=== PATIENT | female | born 1960 | race Caucasian/White ===

== ENCOUNTER 2017-02-22 15:42 | Emergency (ER) | payer OTHER ==
[~2017-02-22 15:42] MED LIST: ASPIR 8181 MG PO; EFFEXOR-XR150 MG PO; KLONOPIN1 MG PO; LEVOTHYROXINE0.05 M2 PO; TRAMADOL HCL50 MG PO; TRAZODONE HYDR100 MG PO; VITAMIN D32000 I2 PO
[2017-02-22 17:27] VITALS: BP 123/92
== END 2017-02-22 16:08 | disposition home or self-care (01) ==
LOC: ED 15:42
DX: G44.209 Tension-type headache, unspecified, not intractable (principal); M79.7 Fibromyalgia; R03.0 Elevated blood-pressure reading, without diagnosis of hypertension; F41.9 Anxiety disorder, unspecified; F32.9 Major depressive disorder, single episode, unspecified; G47.00 Insomnia, unspecified
CPT/HCPCS: J1885

== ENCOUNTER 2017-04-14 20:08 | Emergency (ER) | payer OTHER ==
[2017-04-14 21:21] LABS: BASOPHIL % 1.4 % (0-2); PLATELET COUNT 292 x10^3mcL (130-400); RED CELL DISTRIBUTION WIDTH 12.7 % (11.5-14.5)
[2017-04-14 21:27] LABS: CALCIUM 9.2 mg/dL (8.5-10.1); CARBON DIOXIDE 29.6 mmol/L (21-32); CHLORIDE SERUM 104 mmol/L (98-107); CREATININE SERUM 0.9 mg/dL (0.6-1.0); GFR1 > 60 mL/min; GLUCOSE SERUM 153 mg/dL (74-106); POTASSIUM SERUM 3.9 mmol/L (3.5-5.1); SODIUM SERUM 142 mmol/L (136-145)
[2017-04-14 21:32] LABS: ALBUMIN 4.1 g/dL (3.4-5.0); ALKALINE PHOSPHATASE 116 U/L (46-116); ALT/SGPT 40 U/L (14-59); AST/SGOT 26 U/L (15-37); BILIRUBIN TOTAL 0.2 mg/dL (0.20-1.00); TOTAL PROTEIN, SERUM 7.3 g/dL (6.4-8.2)
[2017-04-14 22:10] VITALS: BP 128/88
== END 2017-04-14 22:10 | disposition home or self-care (01) ==
LOC: ED 20:08
PROVIDERS: Emergency Medicine
DX: R14.0 Abdominal distension (gaseous) (principal); K64.9 Unspecified hemorrhoids; M79.7 Fibromyalgia
CPT/HCPCS: J1885

== ENCOUNTER 2017-06-13 23:01 | Emergency (ER) | payer OTHER ==
[2017-06-14 00:40] VITALS: BP 133/57
== END 2017-06-14 00:40 | disposition home or self-care (01) ==
LOC: ED 23:01
DX: B34.9 Viral infection, unspecified (principal); H92.03 Otalgia, bilateral

== ENCOUNTER 2017-07-14 15:22 | Emergency (ER) | payer OTHER ==
[2017-07-14 16:39] VITALS: BP 140/92
== END 2017-07-14 16:39 | disposition home or self-care (01) ==
LOC: ED 15:22
DX: S90.32XA Contusion of left foot, initial encounter (principal); M79.7 Fibromyalgia; E03.9 Hypothyroidism, unspecified; G89.29 Other chronic pain; M54.2 Cervicalgia; M54.9 Dorsalgia, unspecified; W22.8XXA Striking against or struck by other objects, initial encounter; Y93.89 Activity, other specified; Y99.8 Other external cause status; Y92.89 Other specified places as the place of occurrence of the external cause
CPT/HCPCS: Q0092

== ENCOUNTER 2017-08-02 08:01 | Emergency (ER) | payer OTHER ==
[2017-08-02 09:54] VITALS: BP 128/86
== END 2017-08-02 09:52 | disposition home or self-care (01) ==
LOC: ED 08:01
DX: S92.515A Nondisplaced fracture of proximal phalanx of left lesser toe(s), initial encounter for closed fracture (principal); M79.672 Pain in left foot; M79.7 Fibromyalgia; G47.00 Insomnia, unspecified; W22.8XXA Striking against or struck by other objects, initial encounter; Y93.89 Activity, other specified; Y99.8 Other external cause status; Y92.89 Other specified places as the place of occurrence of the external cause
CPT/HCPCS: Q0092

== ENCOUNTER 2017-09-11 16:22 | Emergency (ER) | payer OTHER ==
[~2017-09-11] VITALS: Ht 157.5 cm; Wt 71.2 kg
[2017-09-11 20:45] VITALS: BP 121/84
== END 2017-09-11 20:45 | disposition home or self-care (01) ==
LOC: ED 16:22
DX: M54.16 Radiculopathy, lumbar region (principal); R03.0 Elevated blood-pressure reading, without diagnosis of hypertension; Z90.49 Acquired absence of other specified parts of digestive tract; Z90.89 Acquired absence of other organs
CPT/HCPCS: J1885

== ENCOUNTER 2018-03-03 20:45 | Emergency (ER) | payer OTHER ==
[~2018-03-03] VITALS: Ht 157.5 cm; Wt 70.3 kg
[2018-03-03 20:55] VITALS: Ht 157.5 cm; Wt 70.3 kg
[2018-03-03 22:15] VITALS: BP 124/86
== END 2018-03-03 22:15 | disposition home or self-care (01) ==
LOC: ED 20:45
DX: M54.42 Lumbago with sciatica, left side (principal); M54.41 Lumbago with sciatica, right side; G89.29 Other chronic pain; M79.7 Fibromyalgia; I10 Essential (primary) hypertension; Z90.49 Acquired absence of other specified parts of digestive tract

== ENCOUNTER 2018-04-22 11:39 | Inpatient (IN) | payer OTHER ==
[~2018-04-22] VITALS: Ht 157.5 cm; Wt 66.5 kg
[2018-04-22 11:46] VITALS: Ht 157.5 cm; Wt 66.5 kg
[2018-04-22 12:33] LABS: BASOPHIL % 0.9 % (0-2); PLATELET COUNT 283 x10^3mcL (130-400); RED CELL DISTRIBUTION WIDTH 12.9 % (11.5-14.5)
[2018-04-22 12:43] LABS: CALCIUM 9.3 mg/dL (8.5-10.1); CARBON DIOXIDE 21.4 mmol/L (21-32); CHLORIDE SERUM 102 mmol/L (98-107); CREATININE SERUM 0.8 mg/dL (0.6-1.0); GFR1 > 60 mL/min; GLUCOSE SERUM 321 mg/dL (74-106); POTASSIUM SERUM 3.6 mmol/L (3.5-5.1); SODIUM SERUM 140 mmol/L (136-145)
[2018-04-22 12:52] LABS: ALKALINE PHOSPHATASE 169 U/L (46-116); ALT/SGPT 70 U/L (14-59); AST/SGOT 58 U/L (15-37); HDL CHOLESTEROL 44 mg/dL (40-60); PHOSPHOROUS 3.1 mg/dL (2.5-4.9); URIC ACID 5.1 mg/dL (2.6-6.0)
[2018-04-22 12:54] LABS: CHOLESTEROL 339 mg/dL (<200)
[2018-04-22 15:06] VITALS: BP 136/78
[2018-04-22 15:47] LABS: MAGNESIUM 1.8 mg/dL (1.8-2.4)
[2018-04-22 15:59] LABS: FREE T4 1.08 ng/dL (0.76-1.46); FREE THYROXINE INDEX 2.9 ug/dL (1.4-4.5); T4(THYROXINE) 9.2 ug/dL (4.7-13.3)
[2018-04-22 16:07] LABS: T3 TOTAL 1.05 ng/mL
[2018-04-22] MEDS ORDERED: GABAPENTIN300 M4 PO (16:21)
[2018-04-22 17:13] VITALS: BP 107/71
[2018-04-22 17:38] LABS: UA SPECIFIC GRAVITY >=1.030 (1.005-1.035); microscopic required? YES; urine erythrocyte NEGATIVE (NEGATIVE)
[2018-04-22 17:49] LABS: AMPHETAMINE QUAL UR NONE DETECTED (NEG <=1000)
[2018-04-23 04:57] VITALS: BP 118/64
[2018-04-23 06:41] LABS: BASOPHIL % 0.6 % (0-2); PLATELET COUNT 249 x10^3mcL (130-400); RED CELL DISTRIBUTION WIDTH 12.5 % (11.5-14.5)
[2018-04-23 07:01] LABS: CALCIUM 8.3 mg/dL (8.5-10.1); CARBON DIOXIDE 25.1 mmol/L (21-32); CHLORIDE SERUM 109 mmol/L (98-107); CREATININE SERUM 0.7 mg/dL (0.6-1.0); GFR1 > 60 mL/min; GLUCOSE SERUM 197 mg/dL (74-106); POTASSIUM SERUM 3.7 mmol/L (3.5-5.1); SODIUM SERUM 146 mmol/L (136-145)
[2018-04-23 08:41] VITALS: BP 117/68
[2018-04-23 14:01] VITALS: BP 134/73
[2018-04-23 17:45] VITALS: BP 133/74
[2018-04-23 20:52] VITALS: BP 128/81
[2018-04-24 05:31] VITALS: BP 114/71
[2018-04-24 06:06] LABS: CALCIUM 8.2 mg/dL (8.5-10.1); CARBON DIOXIDE 24.4 mmol/L (21-32); CHLORIDE SERUM 108 mmol/L (98-107); CREATININE SERUM 0.8 mg/dL (0.6-1.0); GFR1 > 60 mL/min; GLUCOSE SERUM 184 mg/dL (74-106); SODIUM SERUM 144 mmol/L (136-145)
[2018-04-24 09:03] VITALS: BP 119/74
[2018-04-24] MEDS ORDERED: METFORMIN HCL1000 MG PO (09:50)
[2018-04-24 13:07] VITALS: BP 120/70
[2018-04-24] MEDS ORDERED: LIPI20 PO (13:32)
[2018-04-24 14:38] VITALS: BP 120/70
== END 2018-04-24 15:00 | disposition home or self-care (01) | DRG 203 ==
LOC: ED 11:39 → DU 14:18
PROVIDERS: Emergency Medicine; Family Medicine
DX: M94.0 Chondrocostal junction syndrome [Tietze] (principal); N17.0 Acute kidney failure with tubular necrosis; K21.9 Gastro-esophageal reflux disease without esophagitis; M79.7 Fibromyalgia; E11.65 Type 2 diabetes mellitus with hyperglycemia; I10 Essential (primary) hypertension; G89.29 Other chronic pain; M54.9 Dorsalgia, unspecified; F32.9 Major depressive disorder, single episode, unspecified; G90.8 Other disorders of autonomic nervous system; I16.0 Hypertensive urgency; E03.9 Hypothyroidism, unspecified; E78.5 Hyperlipidemia, unspecified; F41.9 Anxiety disorder, unspecified; Z90.49 Acquired absence of other specified parts of digestive tract; E87.0 Hyperosmolality and hypernatremia
CPT/HCPCS: 82962; 83880; 84439; G0480; J0780; J1885; J2405; J7030; Q0092

== ENCOUNTER 2018-05-03 19:06 | Emergency (ER) | payer OTHER ==
[~2018-05-03] VITALS: Ht 157.5 cm; Wt 67.6 kg
[~2018-05-03 19:06] MED LIST changes: +GABAPENTIN300 M4 PO; +LIPI20 PO; +METFORMIN HCL1000 MG PO
[2018-05-03 19:14] VITALS: Ht 157.5 cm; Wt 67.6 kg
[2018-05-03 21:32] VITALS: BP 114/80
== END 2018-05-03 21:32 | disposition home or self-care (01) ==
LOC: ED 19:06
DX: M25.512 Pain in left shoulder (principal); I10 Essential (primary) hypertension; M79.7 Fibromyalgia; Z90.49 Acquired absence of other specified parts of digestive tract
CPT/HCPCS: A4570; J1885

== ENCOUNTER 2018-08-12 23:30 | Emergency (ER) | payer OTHER ==
[2018-08-12 23:42] VITALS: BP 125/79; Ht 162.6 cm
== END 2018-08-13 00:34 | disposition home or self-care (01) ==
LOC: ED 23:30
DX: S40.862A Insect bite (nonvenomous) of left upper arm, initial encounter (principal); E11.9 Type 2 diabetes mellitus without complications; I10 Essential (primary) hypertension; F41.9 Anxiety disorder, unspecified; G89.29 Other chronic pain; F32.9 Major depressive disorder, single episode, unspecified; M79.7 Fibromyalgia; Z90.89 Acquired absence of other organs; Z90.49 Acquired absence of other specified parts of digestive tract; W57.XXXA Bitten or stung by nonvenomous insect and other nonvenomous arthropods, initial encounter; Y93.89 Activity, other specified; Y92.89 Other specified places as the place of occurrence of the external cause; Y99.8 Other external cause status

== ENCOUNTER 2018-09-17 12:50 | Emergency (ER) | payer OTHER ==
[~2018-09-17] VITALS: Ht 157.5 cm; Wt 65.8 kg
[2018-09-17 13:07] VITALS: Ht 157.5 cm; Wt 65.8 kg
[2018-09-17 14:22] LABS: BASOPHIL % 0.6 % (0-2); PLATELET COUNT 328 x10^3mcL (130-400); RED CELL DISTRIBUTION WIDTH 12.8 % (11.5-14.5)
[2018-09-17 14:29] LABS: CALCIUM 9.3 mg/dL (8.5-10.1); CARBON DIOXIDE 25.3 mmol/L (21-32); CHLORIDE SERUM 104 mmol/L (98-107); CREATININE SERUM 0.8 mg/dL (0.6-1.0); GFR1 > 60 mL/min; GLUCOSE SERUM 131 mg/dL (74-106); POTASSIUM SERUM 4.2 mmol/L (3.5-5.1); SODIUM SERUM 139 mmol/L (136-145)
[2018-09-17 14:34] LABS: ALKALINE PHOSPHATASE 107 U/L (46-116); ALT/SGPT 43 U/L (14-59); AST/SGOT 30 U/L (15-37); BILIRUBIN TOTAL 0.3 mg/dL (0.20-1.00); TOTAL PROTEIN, SERUM 7.6 g/dL (6.4-8.2)
[2018-09-17 15:45] VITALS: BP 146/76
== END 2018-09-17 15:45 | disposition home or self-care (01) ==
LOC: ED 12:50
PROVIDERS: Specialist
DX: R53.1 Weakness (principal); R11.0 Nausea; R05 Cough; I10 Essential (primary) hypertension; E11.9 Type 2 diabetes mellitus without complications; F41.9 Anxiety disorder, unspecified; M79.7 Fibromyalgia; G89.29 Other chronic pain; Z90.89 Acquired absence of other organs; Z90.49 Acquired absence of other specified parts of digestive tract
CPT/HCPCS: 82962; J1885; J2405; Q0092

== ENCOUNTER 2018-12-10 17:30 | Emergency (ER) | payer OTHER ==
[~2018-12-10] VITALS: Ht 157.5 cm; Wt 65.1 kg
[2018-12-10 17:37] VITALS: Ht 157.5 cm; Wt 65.1 kg
[2018-12-10 20:26] LABS: microscopic required? NO
[2018-12-10 20:38] LABS: BASOPHIL % 0.4 % (0-2); PLATELET COUNT 359 x10^3mcL (130-400); RED CELL DISTRIBUTION WIDTH 12.9 % (11.5-14.5)
[2018-12-10 20:40] LABS: UA SPECIFIC GRAVITY >=1.030 (1.005-1.035); urine erythrocyte NEGATIVE (NEGATIVE)
[2018-12-10 20:48] LABS: CALCIUM 9.3 mg/dL (8.5-10.1); CARBON DIOXIDE 25.6 mmol/L (21-32); CREATININE SERUM 1.1 mg/dL (0.6-1.0); POTASSIUM SERUM 4.1 mmol/L (3.5-5.1)
[2018-12-10 20:53] LABS: ALBUMIN 4.7 g/dL (3.4-5.0); BILIRUBIN TOTAL 0.6 mg/dL (0.20-1.00)
[2018-12-10 20:57] LABS: TOTAL PROTEIN, SERUM 8.7 g/dL (6.4-8.2)
[2018-12-10 22:37] VITALS: BP 120/68
== END 2018-12-10 22:30 | disposition home or self-care (01) ==
LOC: ED 17:30
PROVIDERS: Emergency Medicine
DX: R53.1 Weakness (principal); R10.13 Epigastric pain; R10.32 Left lower quadrant pain; R10.31 Right lower quadrant pain; R19.7 Diarrhea, unspecified; R11.0 Nausea; I10 Essential (primary) hypertension; E11.9 Type 2 diabetes mellitus without complications; F41.9 Anxiety disorder, unspecified; F32.9 Major depressive disorder, single episode, unspecified; M79.7 Fibromyalgia; G89.29 Other chronic pain; M54.9 Dorsalgia, unspecified; Z90.89 Acquired absence of other organs; Z90.49 Acquired absence of other specified parts of digestive tract; Z98.890 Other specified postprocedural states
CPT/HCPCS: J1885; J2405; J7030

== ENCOUNTER 2019-02-25 14:50 | Emergency (ER) | payer OTHER ==
[~2019-02-25] VITALS: Ht 157.5 cm; Wt 67.6 kg
[2019-02-25 15:01] VITALS: Ht 157.5 cm; Wt 67.6 kg
[2019-02-25 19:16] LABS: BASOPHIL % 0.5 % (0-2); PLATELET COUNT 292 x10^3mcL (130-400); RED CELL DISTRIBUTION WIDTH 13.3 % (11.5-14.5)
[2019-02-25 19:20] LABS: CARBON DIOXIDE 29.2 mmol/L (21-32); CHLORIDE SERUM 100 mmol/L (98-107); CREATININE SERUM 0.9 mg/dL (0.6-1.0); GFR1 > 60 mL/min; GLUCOSE SERUM 138 mg/dL (74-106); POTASSIUM SERUM 3.7 mmol/L (3.5-5.1); SODIUM SERUM 138 mmol/L (136-145)
[2019-02-25 19:24] LABS: ALBUMIN 4.2 g/dL (3.4-5.0); ALKALINE PHOSPHATASE 110 U/L (46-116); ALT/SGPT 55 U/L (14-59); AST/SGOT 32 U/L (15-37); LIPASE 295 IU/L (73-393); TOTAL PROTEIN, SERUM 7.6 g/dL (6.4-8.2)
[2019-02-25 21:15] VITALS: BP 131/75
== END 2019-02-25 21:15 | disposition home or self-care (01) ==
LOC: ED 14:50
PROVIDERS: Emergency Medicine
DX: H66.91 Otitis media, unspecified, right ear (principal); B34.9 Viral infection, unspecified; I10 Essential (primary) hypertension; E11.9 Type 2 diabetes mellitus without complications; E78.00 Pure hypercholesterolemia, unspecified; F41.9 Anxiety disorder, unspecified; F29 Unspecified psychosis not due to a substance or known physiological condition; F32.9 Major depressive disorder, single episode, unspecified; Z90.49 Acquired absence of other specified parts of digestive tract; Z90.89 Acquired absence of other organs
CPT/HCPCS: J2270; J2405; J7030

== ENCOUNTER 2019-03-27 17:50 | Emergency (ER) | payer OTHER ==
[~2019-03-27] VITALS: Ht 157.5 cm; Wt 67.6 kg
[2019-03-27 18:02] VITALS: Ht 157.5 cm; Wt 67.6 kg
[2019-03-27 19:31] VITALS: BP 106/70
== END 2019-03-27 19:31 | disposition left against medical advice (07) ==
LOC: ED 17:50
DX: Z53.21 Procedure and treatment not carried out due to patient leaving prior to being seen by health care provider (principal)

== ENCOUNTER 2019-04-12 12:11 | Emergency (ER) | payer OTHER ==
[~2019-04-12] VITALS: Ht 157.5 cm; Wt 68.3 kg
[2019-04-12 12:26] VITALS: Ht 157.5 cm; Wt 68.3 kg
[2019-04-12 13:22] LABS: BASOPHIL % 0.7 % (0-2); PLATELET COUNT 297 x10^3mcL (130-400); RED CELL DISTRIBUTION WIDTH 13.3 % (11.5-14.5)
[2019-04-12 13:30] LABS: UA SPECIFIC GRAVITY 1.025 (1.005-1.035); microscopic required? YES; urine erythrocyte TRACE (NEGATIVE)
[2019-04-12 13:38] LABS: CALCIUM 9.7 mg/dL (8.5-10.1); CARBON DIOXIDE 25.7 mmol/L (21-32); CHLORIDE SERUM 106 mmol/L (98-107); CREATININE SERUM 0.8 mg/dL (0.6-1.0); GFR1 > 60 mL/min; GLUCOSE SERUM 150 mg/dL (74-106); POTASSIUM SERUM 5.2 mmol/L (3.5-5.1); SODIUM SERUM 140 mmol/L (136-145)
[2019-04-12 13:40] LABS: AMPHETAMINE QUAL UR NONE DETECTED (See below)
[2019-04-12 13:43] LABS: ALBUMIN 3.9 g/dL (3.4-5.0); ALKALINE PHOSPHATASE 95 U/L (46-116); ALT/SGPT 63 U/L (14-59); AST/SGOT 31 U/L (15-37); BILIRUBIN TOTAL 0.43 mg/dL (0.20-1.00); TOTAL PROTEIN, SERUM 7.1 g/dL (6.4-8.2)
[2019-04-12 15:39] LABS: CALCIUM 9.4 mg/dL (8.5-10.1); CARBON DIOXIDE 23.6 mmol/L (21-32); CHLORIDE SERUM 105 mmol/L (98-107); CREATININE SERUM 0.8 mg/dL (0.6-1.0); GFR1 > 60 mL/min; GLUCOSE SERUM 129 mg/dL (74-106); SODIUM SERUM 138 mmol/L (136-145)
[2019-04-12 16:55] VITALS: BP 133/88
== END 2019-04-12 16:55 | disposition home or self-care (01) ==
LOC: ED 12:11
PROVIDERS: Emergency Medicine
DX: R42 Dizziness and giddiness (principal); R51 Headache; I10 Essential (primary) hypertension; E11.9 Type 2 diabetes mellitus without complications; F41.9 Anxiety disorder, unspecified; F32.9 Major depressive disorder, single episode, unspecified; M79.7 Fibromyalgia; G89.29 Other chronic pain; E78.00 Pure hypercholesterolemia, unspecified; Z90.89 Acquired absence of other organs; Z90.49 Acquired absence of other specified parts of digestive tract; Z98.890 Other specified postprocedural states
CPT/HCPCS: 82962; J1885; J2405; J8597

== ENCOUNTER 2019-05-24 19:23 | Emergency (ER) | payer OTHER ==
[~2019-05-24] VITALS: Ht 157.5 cm; Wt 68.9 kg
[2019-05-24 19:28] VITALS: Ht 157.5 cm; Wt 68.9 kg
[2019-05-24 23:15] VITALS: BP 114/63
== END 2019-05-24 23:15 | disposition home or self-care (01) ==
LOC: ED 19:23
DX: S16.1XXA Strain of muscle, fascia and tendon at neck level, initial encounter (principal); G44.209 Tension-type headache, unspecified, not intractable; E11.9 Type 2 diabetes mellitus without complications; I10 Essential (primary) hypertension; X58.XXXA Exposure to other specified factors, initial encounter; Y93.89 Activity, other specified; Y92.89 Other specified places as the place of occurrence of the external cause; Y99.8 Other external cause status
CPT/HCPCS: J1885; J2765

== ENCOUNTER 2019-10-05 21:26 | Emergency (ER) | payer OTHER ==
[~2019-10-05] VITALS: Ht 157.5 cm; Wt 66.2 kg
[2019-10-05 21:33] VITALS: Ht 157.5 cm; Wt 66.2 kg
[2019-10-06 00:01] VITALS: BP 116/71
== END 2019-10-06 00:25 | disposition home or self-care (01) ==
LOC: ED 21:26
DX: E11.43 Type 2 diabetes mellitus with diabetic autonomic (poly)neuropathy (principal); K31.84 Gastroparesis; G44.209 Tension-type headache, unspecified, not intractable; A08.4 Viral intestinal infection, unspecified; Z90.89 Acquired absence of other organs; Z90.49 Acquired absence of other specified parts of digestive tract
CPT/HCPCS: 87804; J1885; J2765

== ENCOUNTER 2019-10-13 18:51 | Emergency (ER) | payer OTHER ==
[2019-10-13 19:05] VITALS: BP 118/78
== END 2019-10-13 20:11 | disposition home or self-care (01) ==
LOC: ED 18:51
DX: M26.601 Right temporomandibular joint disorder, unspecified (principal); I10 Essential (primary) hypertension; E11.9 Type 2 diabetes mellitus without complications; F32.9 Major depressive disorder, single episode, unspecified; F41.9 Anxiety disorder, unspecified; Z90.89 Acquired absence of other organs; Z90.49 Acquired absence of other specified parts of digestive tract; E78.00 Pure hypercholesterolemia, unspecified

== ENCOUNTER 2019-12-07 16:26 | Inpatient (IN) | payer OTHER ==
[~2019-12-07] VITALS: Ht 157.5 cm; Wt 63.5 kg
[2019-12-07 16:37] VITALS: Ht 157.5 cm; Wt 63.5 kg
[2019-12-07 18:33] LABS: BASOPHIL % 0.4 % (0-2); PLATELET COUNT 302 x10^3mcL (130-400); RED CELL DISTRIBUTION WIDTH 12.9 % (11.5-14.5)
[2019-12-07 18:51] LABS: microscopic required? NO
[2019-12-07 18:57] LABS: UA SPECIFIC GRAVITY <=1.005 (1.005-1.035); urine erythrocyte NEGATIVE (NEGATIVE)
[2019-12-07 19:22] LABS: CHLORIDE SERUM 98 mmol/L (98-107); POTASSIUM SERUM 4.1 mmol/L (3.5-5.1); SODIUM SERUM 135 mmol/L (136-145)
[2019-12-07 19:23] LABS: ALBUMIN 3.7 g/dL (3.4-5.0); ALKALINE PHOSPHATASE 140 U/L (46-116); ALT/SGPT 42 U/L (14-59); AST/SGOT 25 U/L (15-37); BILIRUBIN TOTAL 0.52 mg/dL (0.20-1.00); CALCIUM 9.4 mg/dL (8.5-10.1); CARBON DIOXIDE 29.2 mmol/L (21-32); GFR1 > 60 mL/min; GLUCOSE SERUM 426 mg/dL (74-106); TOTAL PROTEIN, SERUM 7.2 g/dL (6.4-8.2)
[2019-12-07] MEDS ORDERED: ZESTRIL10 MG PO (20:12)
[2019-12-07 20:59] LABS: AMPHETAMINE QUAL UR NEGATIVE (See below)
[2019-12-07 21:00] LABS: CHOLESTEROL 363 mg/dL (<200); CHOLESTEROL/HDL RATIO 8.9; HDL CHOLESTEROL 41 mg/dL (40-60); TRIGLYCERIDES 693 mg/dL (<150)
[2019-12-07 22:40] VITALS: BP 109/69
[2019-12-08 05:08] LABS: BASOPHIL % 0.7 % (0-2); PLATELET COUNT 199 x10^3mcL (130-400); RED CELL DISTRIBUTION WIDTH 12.9 % (11.5-14.5)
[2019-12-08 05:31] LABS: CALCIUM 7.8 mg/dL (8.5-10.1); CARBON DIOXIDE 24.8 mmol/L (21-32); CHLORIDE SERUM 110 mmol/L (98-107); CREATININE SERUM 0.8 mg/dL (0.6-1.0); GFR1 > 60 mL/min; GLUCOSE SERUM 165 mg/dL (74-106); MAGNESIUM 1.9 mg/dL (1.8-2.4); PHOSPHOROUS 3.2 mg/dL (2.5-4.9); POTASSIUM SERUM 3.9 mmol/L (3.5-5.1); SODIUM SERUM 143 mmol/L (136-145)
[2019-12-08 05:58] VITALS: BP 100/61
[2019-12-08 08:54] VITALS: BP 96/57
[2019-12-08 12:50] VITALS: BP 111/70
[2019-12-08 17:51] VITALS: BP 116/73
[2019-12-08 21:00] VITALS: BP 119/76
[2019-12-09 05:49] VITALS: BP 124/69
[2019-12-09 06:20] VITALS: BP 124/69
[2019-12-09 06:39] LABS: BASOPHIL % 0.6 % (0-2); PLATELET COUNT 207 x10^3mcL (130-400); RED CELL DISTRIBUTION WIDTH 12.8 % (11.5-14.5)
[2019-12-09 07:27] LABS: CARBON DIOXIDE 25.4 mmol/L (21-32); CHLORIDE SERUM 107 mmol/L (98-107); CREATININE SERUM 0.7 mg/dL (0.6-1.0); GFR1 > 60 mL/min; GLUCOSE SERUM 155 mg/dL (74-106); PHOSPHOROUS 3.1 mg/dL (2.5-4.9); POTASSIUM SERUM 4.1 mmol/L (3.5-5.1); SODIUM SERUM 141 mmol/L (136-145)
[2019-12-09 08:45] VITALS: BP 105/52
[2019-12-09 09:07] LABS: MAGNESIUM 1.7 mg/dL (1.8-2.4)
[2019-12-09] MEDS ORDERED: GLU5 PO (12:33)
[2019-12-09] MEDS ORDERED: METFORMIN HCL1000 MG PO (12:33)
[2019-12-09 12:59] VITALS: BP 105/63
[2019-12-09 13:14] VITALS: BP 105/63
== END 2019-12-09 14:08 | disposition home or self-care (01) | DRG 205 ==
LOC: ED 16:26 → DU 20:11
PROVIDERS: Emergency Medicine; ADMIT Internal Medicine
DX: M94.0 Chondrocostal junction syndrome [Tietze] (principal); E11.00 Type 2 diabetes mellitus with hyperosmolarity without nonketotic hyperglycemic-hyperosmolar coma (NKHHC); E87.1 Hypo-osmolality and hyponatremia; I10 Essential (primary) hypertension; M79.7 Fibromyalgia; F32.9 Major depressive disorder, single episode, unspecified; E78.5 Hyperlipidemia, unspecified; E03.9 Hypothyroidism, unspecified; G47.00 Insomnia, unspecified; Z68.26 Body mass index [BMI] 26.0-26.9, adult; Z79.84 Long term (current) use of oral hypoglycemic drugs; Z91.14 Patient's other noncompliance with medication regimen
CPT/HCPCS: 82962; 83880; 87804; G0378; J1885; J7030

== ENCOUNTER 2019-12-22 15:41 | Emergency (ER) | payer OTHER ==
[~2019-12-22] VITALS: Ht 167.6 cm; Wt 65.8 kg
[~2019-12-22 15:41] MED LIST changes: +GLU5 PO; +ZESTRIL10 MG PO
[2019-12-22 15:45] VITALS: Ht 167.6 cm; Wt 65.8 kg
[2019-12-22 17:01] LABS: CALCIUM 9.1 mg/dL (8.5-10.1); CARBON DIOXIDE 29.6 mmol/L (21-32); CREATININE SERUM 1.5 mg/dL (0.6-1.0); POTASSIUM SERUM 4.6 mmol/L (3.5-5.1)
[2019-12-22 17:05] LABS: BILIRUBIN TOTAL 0.35 mg/dL (0.20-1.00); TOTAL PROTEIN, SERUM 7.6 g/dL (6.4-8.2)
[2019-12-22 17:17] LABS: BASOPHIL % 0.5 % (0-2); PLATELET COUNT 348 x10^3mcL (130-400)
[2019-12-22 20:33] VITALS: BP 133/86
== END 2019-12-22 20:33 | disposition home or self-care (01) ==
LOC: ED 15:41
PROVIDERS: Student in an Organized Health Care Education/Training Program
DX: J06.9 Acute upper respiratory infection, unspecified (principal); E11.65 Type 2 diabetes mellitus with hyperglycemia; I10 Essential (primary) hypertension; M79.7 Fibromyalgia; G89.29 Other chronic pain; E78.00 Pure hypercholesterolemia, unspecified; Z90.89 Acquired absence of other organs; Z90.49 Acquired absence of other specified parts of digestive tract
CPT/HCPCS: 36415; 82962; 87804

== ENCOUNTER 2020-01-06 14:13 | Emergency (ER) | payer OTHER ==
[~2020-01-06] VITALS: Ht 157.5 cm; Wt 65.3 kg
[2020-01-06 14:52] VITALS: BP 132/67; Ht 157.5 cm; Wt 65.3 kg
== END 2020-01-06 18:11 | disposition home or self-care (01) ==
LOC: ED 14:13
DX: S16.1XXA Strain of muscle, fascia and tendon at neck level, initial encounter (principal); S86.911A Strain of unspecified muscle(s) and tendon(s) at lower leg level, right leg, initial encounter; S30.0XXA Contusion of lower back and pelvis, initial encounter; I10 Essential (primary) hypertension; E11.9 Type 2 diabetes mellitus without complications; W01.0XXA Fall on same level from slipping, tripping and stumbling without subsequent striking against object, initial encounter; Y93.89 Activity, other specified; Y92.89 Other specified places as the place of occurrence of the external cause; Y99.8 Other external cause status
CPT/HCPCS: J1885

== ENCOUNTER 2020-01-07 09:52 | Emergency (ER) | payer OTHER ==
[~2020-01-07] VITALS: Ht 157.5 cm; Wt 65.8 kg
[2020-01-07 09:59] VITALS: Ht 157.5 cm; Wt 65.8 kg
[2020-01-07 11:47] VITALS: BP 132/71
== END 2020-01-07 11:47 | disposition home or self-care (01) ==
LOC: ED 09:52
DX: S43.401A Unspecified sprain of right shoulder joint, initial encounter (principal); S63.501A Unspecified sprain of right wrist, initial encounter; S16.1XXA Strain of muscle, fascia and tendon at neck level, initial encounter; S80.01XA Contusion of right knee, initial encounter; W19.XXXA Unspecified fall, initial encounter; Y93.89 Activity, other specified; Y92.89 Other specified places as the place of occurrence of the external cause; Y99.8 Other external cause status

== ENCOUNTER 2020-01-11 18:18 | Emergency (ER) | payer OTHER ==
[~2020-01-11] VITALS: Ht 157.5 cm; Wt 66.7 kg
[2020-01-11 18:24] VITALS: Ht 157.5 cm; Wt 66.7 kg
[2020-01-11 20:14] VITALS: BP 128/78
== END 2020-01-11 20:14 | disposition home or self-care (01) ==
LOC: ED 18:18
DX: G89.29 Other chronic pain (principal); M25.561 Pain in right knee; M25.562 Pain in left knee; M79.601 Pain in right arm; I10 Essential (primary) hypertension; E11.9 Type 2 diabetes mellitus without complications; M79.7 Fibromyalgia; Z90.49 Acquired absence of other specified parts of digestive tract; Z90.89 Acquired absence of other organs; W18.30XA Fall on same level, unspecified, initial encounter; Y93.89 Activity, other specified; Y92.89 Other specified places as the place of occurrence of the external cause; Y99.8 Other external cause status
CPT/HCPCS: J3010

== ENCOUNTER 2020-01-29 01:53 | Emergency (ER) | payer OTHER ==
[~2020-01-29] VITALS: Ht 157.5 cm; Wt 67.4 kg
[2020-01-29 02:07] VITALS: BP 142/82; Ht 157.5 cm; Wt 67.4 kg
== END 2020-01-29 02:54 | disposition home or self-care (01) ==
LOC: ED 01:53
DX: M54.5 Low back pain (principal); M62.838 Other muscle spasm; I10 Essential (primary) hypertension; E11.9 Type 2 diabetes mellitus without complications; E78.00 Pure hypercholesterolemia, unspecified; Z90.49 Acquired absence of other specified parts of digestive tract; Z90.89 Acquired absence of other organs
CPT/HCPCS: J1885

== ENCOUNTER 2020-06-20 07:00 | Emergency (ER) | payer OTHER ==
[~2020-06-20] VITALS: Ht 170.2 cm; Wt 63.5 kg
[2020-06-20 07:11] VITALS: Ht 170.2 cm; Wt 63.5 kg
[2020-06-20 09:16] LABS: BASOPHIL % 0.3 % (0-2); PLATELET COUNT 236 x10^3mcL (130-400); RED CELL DISTRIBUTION WIDTH 12.5 % (11.5-14.5)
[2020-06-20 09:17] LABS: ALKALINE PHOSPHATASE 130 U/L (46-116); BILIRUBIN TOTAL 0.4 mg/dL (0.20-1.00); CALCIUM 8.1 mg/dL (8.5-10.1); CARBON DIOXIDE 23.1 mmol/L (21-32); CHLORIDE SERUM 94 mmol/L (98-107); GFR1 > 60 mL/min; MAGNESIUM 1.6 mg/dL (1.8-2.4); POTASSIUM SERUM 3.7 mmol/L (3.5-5.1); SODIUM SERUM 129 mmol/L (136-145); TOTAL PROTEIN, SERUM 6.5 g/dL (6.4-8.2)
[2020-06-20 09:26] LABS: ALBUMIN 3.3 g/dL (3.4-5.0)
[2020-06-20 09:29] LABS: GLUCOSE SERUM 473 mg/dL (74-106)
[2020-06-20 12:28] VITALS: BP 112/61
[2020-06-20 14:22] LABS: ALT/SGPT 32 U/L (14-59); AST/SGOT 22 U/L (15-37)
== END 2020-06-20 12:28 | disposition home or self-care (01) ==
LOC: ED 07:00
PROVIDERS: Emergency Medicine
DX: E11.65 Type 2 diabetes mellitus with hyperglycemia (principal); I10 Essential (primary) hypertension; E78.00 Pure hypercholesterolemia, unspecified; G89.29 Other chronic pain; M54.9 Dorsalgia, unspecified; Z90.49 Acquired absence of other specified parts of digestive tract
CPT/HCPCS: 82962; J1815; J3475; J7030; Q0092

== ENCOUNTER 2020-08-28 17:46 | Emergency (ER) | payer OTHER ==
[~2020-08-28] VITALS: Ht 157.5 cm; Wt 64.0 kg
[2020-08-28 20:18] VITALS: BP 110/49
== END 2020-08-28 20:18 | disposition home or self-care (01) ==
LOC: ED 17:46
DX: M25.551 Pain in right hip (principal); M54.30 Sciatica, unspecified side; I10 Essential (primary) hypertension; E11.9 Type 2 diabetes mellitus without complications; E03.9 Hypothyroidism, unspecified; G89.29 Other chronic pain; M54.9 Dorsalgia, unspecified
CPT/HCPCS: J1885

== ENCOUNTER 2020-09-17 15:22 | Inpatient (IN) | payer OTHER, SELFPAY ==
[~2020-09-17] VITALS: Ht 157.5 cm; Wt 64.6 kg
[2020-09-17 15:24] VITALS: Ht 157.5 cm; Wt 64.6 kg
[2020-09-17 17:22] LABS: UA SPECIFIC GRAVITY >=1.030 (1.005-1.035); microscopic required? YES; urine erythrocyte NEGATIVE (NEGATIVE)
[2020-09-17 17:24] LABS: BASOPHIL % 0.3 % (0-2); PLATELET COUNT 267 x10^3mcL (130-400)
[2020-09-17 17:35] LABS: CALCIUM 9.1 mg/dL (8.5-10.1); CARBON DIOXIDE 27.1 mmol/L (21-32); CHLORIDE SERUM 98 mmol/L (98-107); GFR1 > 60 mL/min; GLUCOSE SERUM 201 mg/dL (74-106); SODIUM SERUM 137 mmol/L (136-145)
[2020-09-17 17:55] LABS: ALBUMIN 3.8 g/dL (3.4-5.0); ALKALINE PHOSPHATASE 146 U/L (46-116); ALT/SGPT 60 U/L (14-59); AST/SGOT 48 U/L (15-37); BILIRUBIN TOTAL 0.5 mg/dL (0.20-1.00); C REACTIVE PROTEIN 5.5 mg/dL (<=0.9); TOTAL PROTEIN, SERUM 7.6 g/dL (6.4-8.2)
[2020-09-17] MEDS ORDERED: TIROSINT88 MC1 PO (18:28)
[2020-09-17] MEDS ORDERED: FORTAMET500 M1 PO (18:28)
[2020-09-17] MEDS ORDERED: ZESTRIL10 MG PO (18:29)
[2020-09-17] MEDS ORDERED: EFFEXOR-XR150 MG PO (18:29)
[2020-09-17 20:35] LABS: CHOLESTEROL/HDL RATIO 5.5
[2020-09-17 20:45] LABS: T3 TOTAL 0.71 ng/mL
[2020-09-17 20:57] LABS: FREE T4 1.44 ng/dL (0.76-1.46)
[2020-09-17 20:59] LABS: FREE THYROXINE INDEX 4.4 ug/dL (1.4-4.5); T4(THYROXINE) 14.5 ug/dL (4.7-13.3)
[2020-09-17 23:50] VITALS: BP 100/62
[2020-09-18] VITALS (7 sets, daily range): BP systolic 97–116; BP diastolic 57–69
[2020-09-18 07:25] LABS: ALKALINE PHOSPHATASE 122 U/L (46-116); ALT/SGPT 40 U/L (14-59); AST/SGOT 26 U/L (15-37); BILIRUBIN TOTAL 0.3 mg/dL (0.20-1.00); C REACTIVE PROTEIN 5.8 mg/dL (<=0.9); CALCIUM 8.2 mg/dL (8.5-10.1); CARBON DIOXIDE 23.6 mmol/L (21-32); CHLORIDE SERUM 105 mmol/L (98-107); GFR1 > 60 mL/min; GLUCOSE SERUM 323 mg/dL (74-106); MAGNESIUM 1.8 mg/dL (1.8-2.4); PHOSPHOROUS 3.3 mg/dL (2.5-4.9); POTASSIUM SERUM 4.4 mmol/L (3.5-5.1); SODIUM SERUM 137 mmol/L (136-145); TOTAL PROTEIN, SERUM 6.4 g/dL (6.4-8.2)
[2020-09-18 07:27] LABS: ALBUMIN 3.1 g/dL (3.4-5.0)
[2020-09-18 08:05] LABS: PLATELET COUNT 207 x10^3mcL (130-400); RED CELL DISTRIBUTION WIDTH 12.7 % (11.5-14.5)
[2020-09-18 13:10] LABS: BAND NEUTROPHIL 1 % (0-10); MONOCYTE 3 % (0-7); PLATELET MORPHOLOGY PLATELETS NORMAL; SEGMENTED NEUTROPHILS 75 % (37-75); rbc morphology (normal/abnorm) ABNORMAL (NORMAL)
[2020-09-19 06:08] VITALS: BP 105/69
[2020-09-19 06:39] LABS: CALCIUM 8.9 mg/dL (8.5-10.1); CARBON DIOXIDE 27.6 mmol/L (21-32); CHLORIDE SERUM 105 mmol/L (98-107); CREATININE SERUM 0.8 mg/dL (0.6-1.0); GFR1 > 60 mL/min; GLUCOSE SERUM 182 mg/dL (74-106); MAGNESIUM 1.9 mg/dL (1.8-2.4); PHOSPHOROUS 3.7 mg/dL (2.5-4.9); POTASSIUM SERUM 4.7 mmol/L (3.5-5.1); SODIUM SERUM 140 mmol/L (136-145)
[2020-09-19 06:45] LABS: BASOPHIL % 0.2 % (0-2); PLATELET COUNT 274 x10^3mcL (130-400); RED CELL DISTRIBUTION WIDTH 12.9 % (11.5-14.5)
[2020-09-19 09:26] VITALS: BP 105/59
[2020-09-19 13:45] VITALS: BP 104/66
[2020-09-19 17:37] VITALS: BP 111/68
[2020-09-19 20:35] VITALS: BP 99/61
[2020-09-20 06:19] VITALS: BP 103/58
[2020-09-20 06:29] LABS: BASOPHIL % 0.4 % (0-2); PLATELET COUNT 317 x10^3mcL (130-400); RED CELL DISTRIBUTION WIDTH 12.8 % (11.5-14.5)
[2020-09-20 06:55] LABS: C REACTIVE PROTEIN 2.6 mg/dL (<=0.9); CALCIUM 8.5 mg/dL (8.5-10.1); CARBON DIOXIDE 27.7 mmol/L (21-32); CHLORIDE SERUM 106 mmol/L (98-107); CREATININE SERUM 0.8 mg/dL (0.6-1.0); GFR1 > 60 mL/min; GLUCOSE SERUM 141 mg/dL (74-106); SODIUM SERUM 143 mmol/L (136-145)
[2020-09-20] MEDS ORDERED: VENTOLIN H0.09 MG/A1 INH (07:54)
[2020-09-20] MEDS ORDERED: ELIQUIS2.5 MG PO (07:54)
[2020-09-20 08:06] VITALS: BP 104/64; BP 171/84
[2020-09-20 11:09] VITALS: BP 112/69
[2020-09-20 13:21] VITALS: BP 112/69
[2020-09-20 13:28] VITALS: BP 112/69
== END 2020-09-20 14:23 | disposition home or self-care (01) | DRG 871 ==
LOC: ED 15:22 → DU 18:58
PROVIDERS: Emergency Medicine; Student in an Organized Health Care Education/Training Program; ADMIT Family Medicine; ATTEND Family Medicine
DX: A41.89 Other specified sepsis (principal); U07.1 COVID-19; J12.89 Other viral pneumonia; F32.9 Major depressive disorder, single episode, unspecified; F41.9 Anxiety disorder, unspecified; G89.29 Other chronic pain; M54.9 Dorsalgia, unspecified; E03.9 Hypothyroidism, unspecified; M79.7 Fibromyalgia; E11.9 Type 2 diabetes mellitus without complications; E86.0 Dehydration; I10 Essential (primary) hypertension; M19.90 Unspecified osteoarthritis, unspecified site; Z79.899 Other long term (current) drug therapy; Z84.1 Family history of disorders of kidney and ureter; Z90.49 Acquired absence of other specified parts of digestive tract; Z82.49 Family history of ischemic heart disease and other diseases of the circulatory system; Z80.9 Family history of malignant neoplasm, unspecified
CPT/HCPCS: 82962; 84439; 85378; 87804; G0378; J0456; J0696; J1100; J1644; J2405; J3535; J7030; J7040; J7050; J7060; Q0092; U0003

== ENCOUNTER 2020-10-03 16:46 | Emergency (ER) | payer OTHER, SELFPAY ==
[~2020-10-03] VITALS: Ht 157.5 cm; Wt 63.0 kg
[~2020-10-03 16:46] MED LIST changes: +ELIQUIS2.5 MG PO; +FORTAMET500 M1 PO; +TIROSINT88 MC1 PO; +VENTOLIN H0.09 MG/A1 INH
[2020-10-03 16:47] VITALS: Ht 157.5 cm; Wt 63.0 kg
[2020-10-03 21:00] VITALS: BP 115/77
== END 2020-10-03 19:50 | disposition home or self-care (01) ==
LOC: ED 16:46
DX: U07.1 COVID-19 (principal); R55 Syncope and collapse; R51.9 Headache, unspecified; I10 Essential (primary) hypertension; E11.9 Type 2 diabetes mellitus without complications

== ENCOUNTER 2020-12-21 19:53 | Emergency (ER) | payer OTHER ==
[~2020-12-21] VITALS: Ht 157.5 cm; Wt 61.5 kg
[~2020-12-21 19:53] MED LIST changes: +BAY PO; +LIPITOR80 MG PO; +METFORMIN HCL1000 M2 PO
[2020-12-21 20:07] VITALS: Ht 157.5 cm; Wt 61.5 kg
[2020-12-21 20:46] VITALS: BP 106/69
== END 2020-12-21 20:46 | disposition home or self-care (01) ==
LOC: ED 19:53
DX: G57.12 Meralgia paresthetica, left lower limb (principal); I10 Essential (primary) hypertension; E11.9 Type 2 diabetes mellitus without complications; Z90.49 Acquired absence of other specified parts of digestive tract; Z90.89 Acquired absence of other organs; E03.9 Hypothyroidism, unspecified